=== PATIENT | female | born 1995 | race Caucasian/White ===

== ENCOUNTER 2025-09-24 19:39 | Observation (INO) | payer BC, OTHER ==
[2025-09-24 19:59] LABS: BASOPHILS ABSOLUTE AUTO 0.05 K/uL (0.00-0.20); BASOPHILS PERCENT AUTO 0.4 % (0.0-1.0); EOSINOPHILS ABSOLUTE AUTO 0.15 K/uL (0.00-0.45); EOSINOPHILS PERCENT AUTO 1.2 % (0.0-6.0); IMMATURE GRAN ABSOLUTE AUTO 0.04 K/uL (0.00-0.05); IMMATURE GRAN PERCENT AUTO 0.3 % (0.0-0.4); LYMPHOCYTES ABSOLUTE AUTO 1.63 K/uL (1.00-4.80); LYMPHOCYTES PERCENT AUTO 13.0 % (24.0-44.0); MEAN PLATELET VOLUME 8.7 fL (9.4-12.3); MONOCYTES ABSOLUTE AUTO 0.69 K/uL (0.00-0.80); MONOCYTES PERCENT AUTO 5.5 % (0.0-8.0); NEUTROPHILS ABSOLUTE AUTO 10.00 K/uL (1.80-7.70); NEUTROPHILS PERCENT AUTO 79.6 % (41.0-71.0); NRBC ABSOLUTE 0.00 K/uL (0.00-0.02); NRBC PERCENT 0.0 /100WBC (0.0-0.2); PLATELET COUNT,PLT 340 K/uL (150-400); RED BLOOD CELL COUNT 4.80 M/uL (4.10-5.30); WHITE BLOOD CELL COUNT,WBC 12.56 K/uL (3.9-11.3)
[2025-09-24 20:02] LABS: APPEARANCE,URINE CLEAR; GLUCOSE,URINE NEGATIVE (NEGATIVE); OCCULT BLOOD,URINE LARGE (NEGATIVE)
[2025-09-24 20:11] LABS: EPITHELIAL CELLS,URINE RARE (NONE-FEW)
[2025-09-24 20:27] LABS: A/G RATIO 0.9 (0.9-1.6); ALANINE AMINOTRANSFERASE,ALT 24.0 IU/L (14-63); ASPARTATE AMNIOTRANSFERASE,AST 20.0 IU/L (15-37); BILIRUBIN TOTAL 0.6 mg/dL (0.2-1.0); BLOOD UREA NITROGEN,BUN 15.0 mg/dL (7.0-18.0); CARBON DIOXIDE,CO2 30.6 mmol/L (21.0-32.0); CHLORIDE,CL 101.0 mmol/L (98-107); CREATININE 0.8 mg/dL (0.6-1.0); EST CRCL DRUG DOSING (CG) 105.51 mL/min; GLUCOSE RANDOM 75.0 mg/dL (74-106); POTASSIUM,K 3.6 mmol/L (3.5-5.1); PROTEIN TOTAL,TP 8.4 g/dL (6.4-8.2); SODIUM,NA 141.0 mmol/L (136-145)
[2025-09-24 20:36] LABS: ESTIMATED GFR 100.0 mL/min (>60)
[2025-09-24 20:45] LABS: LACTIC ACID 2.1 mmol/L (0.4-2.0)
[2025-09-24] MEDS: cefTRIAXone 1 GM in Water For Injection, Sterile 10 ML IVPUSH ONE (20:54)
[2025-09-24] MEDS: Iopamidol 755 MG/ML 500 ML Multipack Bottle IVPUSH STA (22:05)
[2025-09-24] MEDS: Ketorolac 30 MG/ML SDV IVPUSH ONE (22:36)
[2025-09-24] MEDS: fentaNYL 50 MCG/ML SDV IVPUSH ONE (22:44)
[2025-09-25] MEDS ORDERED: Naloxone 0.4 MG/ML SDV IVPUSH PRN (00:07)
[2025-09-25] MEDS: Ondansetron 4 MG/2 ML SDV IVPUSH PRN (01:24)
[2025-09-25 05:33] LABS: BASOPHILS ABSOLUTE AUTO 0.04 K/uL (0.00-0.20); BASOPHILS PERCENT AUTO 0.5 % (0.0-1.0); EOSINOPHILS ABSOLUTE AUTO 0.17 K/uL (0.00-0.45); EOSINOPHILS PERCENT AUTO 2.3 % (0.0-6.0); IMMATURE GRAN ABSOLUTE AUTO 0.01 K/uL (0.00-0.05); IMMATURE GRAN PERCENT AUTO 0.1 % (0.0-0.4); LYMPHOCYTES ABSOLUTE AUTO 1.25 K/uL (1.00-4.80); LYMPHOCYTES PERCENT AUTO 17.1 % (24.0-44.0); MEAN PLATELET VOLUME 9.1 fL (9.4-12.3); MONOCYTES ABSOLUTE AUTO 0.72 K/uL (0.00-0.80); MONOCYTES PERCENT AUTO 9.8 % (0.0-8.0); NEUTROPHILS ABSOLUTE AUTO 5.12 K/uL (1.80-7.70); NEUTROPHILS PERCENT AUTO 70.2 % (41.0-71.0); NRBC ABSOLUTE 0.00 K/uL (0.00-0.02); NRBC PERCENT 0.0 /100WBC (0.0-0.2); PLATELET COUNT,PLT 258 K/uL (150-400); RED BLOOD CELL COUNT 4.20 M/uL (4.10-5.30); WHITE BLOOD CELL COUNT,WBC 7.31 K/uL (3.9-11.3)
[2025-09-25 05:54] LABS: BLOOD UREA NITROGEN,BUN 14.0 mg/dL (7.0-18.0); CARBON DIOXIDE,CO2 28.6 mmol/L (21.0-32.0); CHLORIDE,CL 106.0 mmol/L (98-107); CREATININE 0.6 mg/dL (0.6-1.0); EST CRCL DRUG DOSING (CG) 140.68 mL/min; GLUCOSE RANDOM 68.0 mg/dL (74-106); POTASSIUM,K 4.2 mmol/L (3.5-5.1); SODIUM,NA 141.0 mmol/L (136-145)
[2025-09-25 05:56] LABS: ESTIMATED GFR 122.0 mL/min (>60)
[2025-09-25] MEDS ORDERED: CARIPRAZINE HCL 3 MG PO SCH (09:00)
[2025-09-25] MEDS ORDERED: fentaNYL 50 MCG/ML SDV IVPUSH PRN ×2 (09:10→09:25)
[2025-09-25] MEDS: fentaNYL 100 MCG/2 ML SDV IVPUSH PRN (09:56)
[2025-09-25] MEDS: cefTRIAXone 2 GM in Water For Injection, Sterile 20 ML IVPUSH ONE (12:55)
[2025-09-25] MEDS ORDERED: cefTRIAXone 2 GM in Water For Injection, Sterile 20 ML IVPUSH SCH (20:00)
== END 2025-09-25 13:11 | disposition home or self-care (01) ==
LOC: MW.ED 19:39 → MW.MS 23:07
PROVIDERS: ADMIT Internal Medicine; ATTEND Internal Medicine
DX: N12 Tubulo-interstitial nephritis, not specified as acute or chronic (principal); R31.9 Hematuria, unspecified; F31.9 Bipolar disorder, unspecified; Z88.0 Allergy status to penicillin; Z88.5 Allergy status to narcotic agent; Z90.49 Acquired absence of other specified parts of digestive tract; Z88.8 Allergy status to other drugs, medicaments and biological substances; Z79.899 Other long term (current) drug therapy
CPT/HCPCS: 36415; 74177; 80048; 80053; 81001; 81025; 83605; 85025; 87040; 87086; 96361; 96374; 96375; 96376; 99285; A4216; A9270; G0378; J0696; J1171; J1885; J2405; J3010; J7030; Q9967